=== PATIENT | male | born 1990 | race African-American/Black ===

== ENCOUNTER 2017-01-29 21:05 | Emergency (ER) | payer OTHER ==
[2017-01-29 21:02] LABS: BASOPHIL% 0.2 % (0-2.5); EOSINOPHIL# 0.1 X10e3 (0-0.7); EOSINOPHIL% 0.6 % (0.0-7.0); HEMOGLOBIN 15.5 gm/dL (13.0-16.0); LYMPHOCYTE# 0.9 X10e3 (1.0-3.5); LYMPHOCYTE% 7.8 % (17.0-45.0); MEAN CELL VOLUME 92.3 FL (83-96); MEAN CORPUSCULAR HEMOGLOBIN 30.4 PG (28-34); MEAN CORPUSCULAR HGB CONC 32.9 g/dL (30-36); MEAN PLATELET VOLUME 8.1 FL (6.5-11.5); MONOCYTE% 8.1 % (3.0-12.0); NEUTROPHIL% 83.3 % (40-75); PLATELET COUNT 206 X10e3 (140-420); RED BLOOD COUNT 5.09 X10e (3.90-5.60)
[~2017-01-29 21:05] MED LIST: NO MEDICATIONS; PHENERGAN DM1 ML PO
[2017-01-29 21:06] LABS: DIFF IND NO
[2017-01-29 21:17] LABS: ALBUMIN SERUM 4.4 g/dL (3.5-5.0); ALKALINE PHOSPHATASE 73 U/L (32-92); ALT (SGPT) 36 U/L (10-40); AMYLASE 27 U/L (0-46); AST (SGOT) 27 U/L (10-42); BILIRUBIN, DIRECT 0.1 mg/dL (0.0-0.2); BILIRUBIN,INDIRECT 0.7 mg/dL (0.0-0.9); BILIRUBIN,TOTAL 0.8 mg/dL (0.2-2.0); BLOOD UREA NITROGEN 16 mg/dL (9-23); CALCIUM SERUM 9.2 mg/dL (8.4-10.2); CARBON DIOXIDE 29 mmol/L (22-31); CHLORIDE 103 mmol/L (100-111); CREATININE SERUM 1.3 mg/dL (0.6-1.4); GLOM FILT RATE Estimated ABOVE60 mL/min (>60); GLUCOSE FASTING 110 mg/dL (70-110); LIPASE 15 U/L (22-51); POTASSIUM 4.4 mmol/L (3.5-5.1); PROTEIN TOTAL SERUM 7.2 g/dL (6.0-8.3); SODIUM 138 mmol/L (135-145)
[2017-01-29 22:32] LABS: URINE SOURCE CLEAN CATCH
[2017-01-29 22:36] LABS: URINE BILIRUBIN NEG (NEG); URINE BLOOD NEG (NEG); URINE GLUCOSE NORM (NORM); URINE KETONE NEG (NEG); URINE LEUKOCYTE ESTERASE NEG (NEG); URINE NITRATE NEG (NEG); URINE PROTEIN NEG (NEG); URINE UROBILINOGEN NORM (NORM)
[2017-01-29 22:37] LABS: URINE APPEARANCE CLEAR; URINE COLOR YELLOW
[2017-01-29 22:38] LABS: CULTURE INDICATED? NO
== END 2017-01-29 23:54 | disposition home or self-care (01) ==
LOC: CED 21:05
PROVIDERS: Emergency Medicine
DX: R11.2 Nausea with vomiting, unspecified (principal); Z88.0 Allergy status to penicillin
CPT/HCPCS: 36415; 80048; 80076; 81003; 82150; 83690; 85025; 96361; 96374; 99284; J2405